=== PATIENT | female | born 1985 | race Caucasian/White ===

== ENCOUNTER 2020-09-14 16:24 | Day surgery (SDC) | payer OTHER, SELFPAY ==
[2020-09-14 16:11] VITALS: BP 129/91; PULSE 84; RESP 20; TEMP 36.9; O2SAT 99; BMI 38.4
--- NOTE | 2020-09-14 16:25 | PM.IMHP ---
H&P: HPI History of Present Illness Date/Time: 09/14/20 16:25 Patient is a 34yo who presented to the gynecology office for evaluation of an ovarian cyst on 09/06/20. Patient reported onset of sharp right lower quadrant pain approx. 4 days earlier. She was evaluated in the emergency department due to concern for possible appendicitis. During workup in emergency department, pelvic ultrasound was performed and showed an 8.6 x 6.9 x 6.0 cm complex cystic mass within right ovary or adnexal region. Left ovary appeared within limits. Patient reported feeling reasonably well and was not experiencing significant pain last week. Decision was made to start continuous hormonal regulation. Plan was initially to repeat pelvic US in a few weeks. Patient, however, reported worsening of pain a few days ago. Decision was made to proceed with surgical management and surgery was scheduled for next week. Patient reports progressive worsening of pain every day since then and reported severe pain today. She also reported new onset of nausea earlier today, however, denied vomiting. Pain seems to radiate between abdomen and pelvis on the right side and is better when lying down, however, severe with standing and walking to the point where patient has to bend over to receive any relief. Due to the severe abdominal and pelvic pain and heightened concern for ovarian torsion, decision was made to proceed with surgery today. Chief Complaint: right adnexal mass Review of Systems Review of Systems: All systems reviewed & are unremarkable except as noted in HPI and below Constitutional: Constitutional: Reports as per HPI and Reports no additional constitutional complaints Eyes: Eyes: Reports as per HPI and Reports no additional eye complaints ENT: Reports system reviewed and no additional complaints, except as documented Cardiovascular: Cardiovascular: Reports as per HPI and Reports no additional cardiovascular complaints Respiratory: Respiratory: Reports as per HPI and Reports no additional respiratory complaints Gastrointestinal: Gastrointestinal: Reports as per HPI, Reports no additional gastrointestinal complaints, Reports abdominal pain, Reports nausea and Denies vomiting Genitourinary: Genitourinary: Reports no additional female genitourinary complaints, Reports as per HPI and Reports pelvic pain Musculoskeletal: Musculoskeletal: Reports no additional musculoskeletal complaints and Reports as per HPI Integumentary/Breasts: Skin/Breast: Reports system reviewed and no additional complaints, except as docu and Reports as per HPI Neurologic: Reports system reviewed and no additional complaints, except as documented and Reports as per HPI Psychiatric: Psychiatric: Reports no additional psychiatric complaints and Reports as per HPI Endocrine: Endocrine: Reports no additional endocrine complaints and Reports as per HPI Hematologic/Lymphatic: Hematologic/Lymphatic: Reports no additional hematologic/lymphatic complaints and Reports as per HPI Allergic/Immunologic: Allergic/Immunologic: Reports no additional allergic/immunologic complaints and Reports as per HPI PMFSH Past Medical History Medical History Hyperthyroidism Ovarian cyst Surgical History Surgical History Previous section x 2 [place] teeth removed Family History Family History Grandparent Diabetes mellitus Other Breast cancer Social History Social History Smoking status: Never smoker Second hand tobacco smoke exposure: No Alcohol intake: current Drinks per week: 4 Substance use: never Substance use type: does not use Spiritual care concerns: No Meds Home Medications and Allergies Home Medications Medication Instructions Recorded Confirmed Type ser
[2020-09-14] MEDS: ACETAMINOPHEN 500 MG TABLET 1000 MG PO (16:48)
[2020-09-14] MEDS: KETOROLAC 15 MG/ML VIAL (*BKC) IV PUSH (16:48)
--- NOTE | 2020-09-14 17:17 | WPDHPUPDATE1 ---
History and Physical Update Update Date/Time: 09/14/20 17:17 History and Physical has been reviewed, including an updated exam of the patient. There are NO changes in the patient's condition. Risks, benefits, and alternatives have been discussed and questions answered. Patient agrees to proceed with procedure.
[2020-09-14] MEDS: HEMOSTATIC MATRIX (SURGIFLO with THROMBIN) KIT 1 KIT XX (19:49)
[2020-09-14 20:30] VITALS: BP 138/92; PULSE 123; RESP 18; TEMP 36.3; O2SAT 97
[2020-09-14] MEDS: LACTATED RINGERS 1,000 ML 30 ML IV CONT (20:30)
--- NOTE | 2020-09-14 20:35 | PM.PROC ---
Procedure Note - Detailed Date of procedure: 09/14/20 Pre-op diagnosis: right ovarian mass, pelvic pain Post-op diagnosis: same Procedure performed: Laparoscopic right salpingo-oophorectomy, extensive lysis of adhesions Description of procedure: The patient was taken to the operating room where she self transferred to the operating room table. She was placed in dorsal supine position. General anesthesia was administered and found be adequate. The patient was repositioned in dorsal lithotomy position with use of Charles stirrups. She was prepped and draped in the usual sterile fashion. A Whitley catheter was placed using aseptic technique. A bivalve speculum was inserted into the vagina. The cervix was well visualized and the anterior lip of the cervix was grasped with a single-tooth tenaculum. The cervix was serially dilated to accommodate a HUMI uterine manipulator. The uterine manipulator was inserted and insufflated for use during the laparoscopic portion of the case. The tenaculum and speculum were removed. Director Of Catering's gloves were changed and attention was turned to the patient's abdomen. A small amount of Exparel was injected in the infraumbilical region. An infraumbilical skin incision was made with scalpel. With the abdomen tented up, a Veress needle was inserted into the abdominal cavity. Intra-abdominal placement was confirmed with saline. Carbon dioxide tubing was connected to the Veress needle and insufflation was begun. An adequate pneumoperitoneum was achieved, the Veress needle was removed and a 5 mm Optiview trocar was inserted under direct visualization. The patient was placed in Trendelenburg position for enhanced visualization. A pelvic survey was attempted to be performed, however, limited due to the presence of extensive adhesions. Decision was made to proceed with the placement of two accessory trocars, one in the left lower quadrant and one in the right lower quadrant. A 5 mm trocar was introduced under direct visualization in the right lower quadrant and a 10 mm trocar was inserted in the left lower quadrant under direct visualization. A general pelvic survey was performed. Extensive omental adhesions to the anterior abdominal wall were noted. The uterus was densely adherent to the anterior abdominal wall. The visualized portions of the left ovary and fallopian tube appeared normal, however, were noted to be adherent to the left pelvic side wall and bowel. The right ovary was visualized and noted to be enlarged. Most of the ovary was encompassed by a large cyst and there was little to no remaining normal ovarian tissue. Several ovarian cysts with nodular-like features on the ovarian surface were also noted. The right ovary was noted to be encased and very densely adherent to the right pelvic side wall. The right fallopian tube was adhered to the surface of the ovary, however, appeared grossly normal. Even with patient rotation, Trendelenburg positioning, and careful displacement of the ovary, due to the size of the ovary and the numerous adhesions along the right side wall, the ureter was unable to be visualized. With the use of a blunt probe and Endoshears, lysis of adhesions was performed along the right pelvic side wall very carefully using a combination of both blunt as well as sharp dissection. After extensive lysis of adhesions, the right IP ligament was better visualized as was the right utero-ovarian ligament. The IP ligament was transected with the LigaSure device. The fallopian tube was then transected near the uterine cornua with a LigaSure device and the utero-ovarian ligament was also transected in a few bites completely freeing the ovary and fallopian tube. A small vessel near the right side wall was bleeding. This vessel was made hemostatic with the LigaSure. A 10 mm Endo-Catch bag was introduced into the abdominal cavity and opened, however, was deemed too small for ovary removal. The 10mm Endo-Catch bag was removed as well as the 10mm tr
[2020-09-14 20:45] VITALS: BP 137/73; PULSE 109; RESP 18; O2SAT 100
[2020-09-14] MEDS: fentaNYL CITRATE INJ (*CRX) 100 MCG/2 ML VIAL 25 MCG IV PUSH ×4 (20:53→21:10)
[2020-09-14 21:00] VITALS: BP 119/81; PULSE 94; RESP 18; O2SAT 93
[2020-09-14 21:15] VITALS: BP 124/88; PULSE 97; RESP 14; O2SAT 94
[2020-09-14 22:00] VITALS: BP 126/84; PULSE 108; RESP 16; TEMP 36.1; O2SAT 95
[2020-09-14] MEDS: KETOROLAC 30 MG/ML VIAL (*BKC) IV PUSH (23:35)
[2020-09-15 01:15] VITALS: BP 129/80; PULSE 110; RESP 16; TEMP 36.9; O2SAT 95
[2020-09-15 04:50] VITALS: BP 115/76; PULSE 99; RESP 15; TEMP 36.6; O2SAT 97
[2020-09-15] MEDS: KETOROLAC 30 MG/ML VIAL (*BKC) IV PUSH (05:07)
[2020-09-15 05:15] LABS: Basophils Percent Auto 0.1 % (0.2-1.2); Hematocrit 38.1 % (37.0-47.0); Hemoglobin 12.9 g/dL (12.0-15.0); Immature Granulocyte Absolute 0.09 K/mm3 (0.00-0.031); Immature Granulocyte Percent A 0.7 % (0-0.5); Lymphocytes Absolute Auto 1.68 K/mm3 (0.9-3.2); Lymphocytes Percent Auto 12.6 % (18.3-44.2); Mean Corpuscular HGB Conc 33.9 g/dl (32-36); Mean Corpuscular Hemoglobin 31.8 pg (26-34); Mean Corpuscular Volume 93.8 fl (80-100); Mean Platelet Volume 8.6 fl (7.4-10.4); Monocytes Absolute Auto 0.6 K/mm3 (0.1-0.6); Monocytes Percent Auto 4.4 % (2.6-8.5); Neutrophils Percent Auto 82.2 % (45.5-73.1); Platelet Count Result 257 k/mm3 (150-375); Red Blood Count 4.06 M/mm3 (4.2-5.4); Red Cell Distribution Width 11.5 % (11.5-14.5); White Blood Count 13.3 K/mm3 (4.5-10.0)
[2020-09-15 07:20] VITALS: BP 123/77; PULSE 99; RESP 16; TEMP 36.7; O2SAT 98
--- NOTE | 2020-09-15 07:51 | P.PNAN_ITS ---
Anes - Prog Note Post-Op Date/Time: 09/15/20 07:51 Cardiovascular status: normal Respiratory status: normal Airway patency: baseline Mental status: baseline Post-Op hydration status: normal Vital Signs: Last Vital Signs Temp 97.9 F 09/15/20 04:50 Pulse 99 09/15/20 04:50 Resp 15 09/15/20 04:50 BP 115/76 09/15/20 04:50 Pulse Ox 97 09/15/20 04:50 Pain Score (VAS): 0 I/O: Intake & Output 09/14/20 09/14/20 09/15/20 15:59 23:59 07:59 Intake Total 300 900 Output Total 675 975 Balance -375 -75 Laboratory Tests 09/15/20 05:01 09/15/20 05:01 WBC 13.3 H RBC 4.06 L Hgb 12.9 Hct 38.1 MCV 93.8 MCH 31.8 MCHC 33.9 RDW 11.5 Plt Count 257 MPV 8.6 Immature Gran % (Auto) 0.7 H Neut % (Auto) 82.2 H Lymph % (Auto) 12.6 L [place] % (Auto) 4.4 Eos % (Auto) 0.0 Baso % (Auto) 0.1 L Lymph # (Auto) 1.68 [place] # (Auto) 0.6 Eos # (Auto) 0.0 Baso # (Auto) 0.0 Abs Immat Gran (auto) 0.09 H Absolute Neuts (auto) 11.0 H Absolute Nucleated RBC 0.0 Nucleated RBC % 0.0 Patient Feedback: Patient satisfied with anesthetic care.
[2020-09-15] MEDS: HYDROcodone/acetaminophen (*CRX) 5-325 MG TABLET 1 TAB PO (08:43)
--- NOTE | 2020-09-15 08:47 | PM.GYNPNOP ---
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, unilateral Status: Acute Assessment and Plan: POD#1 doing well continue routine postoperative care switch to PO pain medication dc ferrer anticipate dc home this afternoon Postoperative Procedures: Procedures Operation Date: 09/14/20 18:00 Actual Procedure Side Surgeon p Laparoscopic Right Ovarian Cystectomy, Right Salpingo-Oophorectomy, Extensive Lysis of Adhesions Right Annabelle Kee MD Time Spent With Patient Time: Total time spent is greater than 50% in coordination of care (as documented) at patient's floor/unit and/or counseling patient: Time with patient: less than 15 minutes BARGE WORKER- PN:Subj Post-Op Subjective Date/time seen: 09/15/20 08:47 Patient doing well this morning. States the pain is well controlled with IV pain medication. Currently reports pain approximately 3/10. Denies any headache, chest pain, shortness of breath, nausea, or vomiting. Has tolerated small amount of PO. Ferrer catheter still in place. No flatus yet. Has not yet ambulated. Exam Const: General: cooperative, healthy appearing, comfortable and no acute distress GI: Inspection: non-distended and obesity GI Palp: Yes Soft to palpation Other: appropriately tender, incision sites c/d/i Extrem: Right lower extremity: no edema Left lower extremity: no edema Other: no calf tenderness BARGE WORKER - PN: Obj Data Vital Signs Vital Signs: Vital Signs - 24 hr 09/14/20 16:11 09/14/20 20:30 09/14/20 20:45 Temperature 36.9 C 36.3 C L Pulse Rate 84 123 H 109 H Respiratory Rate 20 18 18 Blood Pressure 129/91 H 138/92 H 137/73 Pulse Oximetry 99 97 100 09/14/20 21:00 09/14/20 21:15 09/14/20 22:00 Temperature 36.1 C L Pulse Rate 94 97 108 H Respiratory Rate 18 14 16 Blood Pressure 119/81 124/88 126/84 Pulse Oximetry 93 94 95 09/15/20 01:15 09/15/20 04:50 Temperature 36.9 C 36.6 C Pulse Rate 110 H 99 Respiratory Rate 16 15 Blood Pressure 129/80 115/76 Pulse Oximetry 95 97 Intake/Output Intake/Output: Intake & Output 09/12/20 09/13/20 09/14/20 09/15/20 23:59 23:59 23:59 23:59 Intake Total 300 900 Output Total 675 975 Balance -375 -75 Meds/Results Medications: Active Medications Generic Name Dose Route Start Last Admin Trade Name Freq PRN Reason Stop Dose Admin Hydrocodone Bitart/Acetaminophen 1 tab 09/14/20 21:27 09/15/20 08:43 Hydrocodone/Acetaminophen (*Crx) 5-325 Mg Tablet PO 1 tab Q3H PRN Administration Pain Rated 5 or Less Hydrocodone Bitart/Acetaminophen 1 tab 09/14/20 21:27 Hydrocodone/Acetaminophen (*Crx) 10-325 Mg Tablet PO Q3H PRN Pain Rated 6 or Greater Dextrose/Lactated Ringer's 1,000 mls @ 125 mls/hr 09/14/20 21:27 Dextrose 5%/Lactated Ringers IV CONT .Q8H LINDSEY Ibuprofen 600 mg 09/14/20 21:27 Ibuprofen 600 Mg Tablet PO Q6H PRN Cramping Ketorolac Tromethamine 30 mg 09/14/20 21:27 09/15/20 05:07 Ketorolac 30 Mg/Ml Vial (*Bkc) IV PUSH 09/19/20 21:28 30 mg Q6H PRN Administration Pain Rated 4-6 Morphine Sulfate 4 mg 09/14/20 21:27 Morphine Sulfate (*Crx) 4 Mg/Ml Inj IV PUSH Q4H PRN Severe breakthrough pain Naloxone HCl 0.1 mg 09/14/20 21:27 Naloxone Hcl 0.4 Mg/Ml Vial IV PUSH Q2M PRN Respiratory rate less than 10 Ondansetron HCl 4 mg 09/14/20 21:27 Ondansetron Inj 4 Mg/2 Ml Vial IV PUSH Q6H PRN Nausea And Vomiting Labs CBC & Chem 7: 09/15/20 05:01 Labs: Laboratory Results - last 24 hr 09/15/20 05:01 WBC 13.3 H RBC 4.06 L Hgb 12.9 Hct 38.1 MCV 93.8 MCH 31.8 MCHC 33.9 RDW 11.5 Plt Count 257 MPV 8.6 Immature Gran % (Auto) 0.7 H Neut % (Auto) 82.2 H Lymph % (Auto) 12.6 L [place] % (Auto) 4.4 Eos % (Auto) 0.0 Baso % (Auto) 0.1 L Lymph # (Auto) 1.68 [place] # (Auto) 0.6 Eos # (Auto) 0.0
[2020-09-15 09:30] VITALS: PULSE 99; RESP 16; O2SAT 98
[2020-09-15] MEDS: IBUPROFEN 600 MG TABLET PO (10:48)
[2020-09-15] MEDS: HYDROcodone/acetaminophen (*CRX) 10-325 MG TABLET 1 TAB PO (11:36)
[2020-09-15 12:30] VITALS: BP 142/82; PULSE 99; RESP 16; TEMP 37.3; O2SAT 96
== END 2020-09-15 13:34 | disposition home or self-care (01) ==
LOC: ANHSURGERY 16:43 → ANHOB2 09-15 11:01
PROVIDERS: PCP Internal Medicine; Visit Provider Student in an Organized Health Care Education/Training Program
PROC: (CPT 49320; principal; 2020-09-14 18:00)
DX: N83.8 Other noninflammatory disorders of ovary, fallopian tube and broad ligament (principal); N73.6 Female pelvic peritoneal adhesions (postinfective); N83.201 Unspecified ovarian cyst, right side; N83.01 Follicular cyst of right ovary; E03.9 Hypothyroidism, unspecified; R10.2 Pelvic and perineal pain
CPT/HCPCS: 58661; 36415; 85025; 88305; 99199; A9270; C9290; J0330; J1100; J1170; J1885; J2250; J2405; J2704; J2710; J3010; J7030; J7120

== ENCOUNTER 2024-11-23 15:41 | Outpatient (CLI) | payer OTHER, SELFPAY ==
--- NOTE | ~2024-11-23 | US_ITS ---
US thyroid INDICATION: Hyperthyroidism TECHNIQUE: Real-time sonographic images of the thyroid gland were obtained. COMPARISON: No prior studies for comparison. FINDINGS: The right thyroid lobe measures 5.1 x 3.1 x 3 cm. The left thyroid lobe measures 4.2 x 1.1 x 1.6 cm. Thyroid is heterogeneous. There is a complex mass in the right thyroid gland which is viral d, very hypoechoic, wider than tall, smoothly marginated with multiple echogenic foci, TR 5, measurin g 3.4 x 2.3 x 2.1 cm. There are multiple small masses in the left thyroid gland, largest measuring 8 x 6 x 7 mm appears cystic. No suspicious masses in the left thyroid gland to suggest malignancy. Norm al vascular flow is present. IMPRESSION: 1. Suspicious right thyroid mass measuring 3.4 cm, TR 5. Ultrasound-guided right thyroid biopsy mike mmended. Reviewed, dictated and finalized at location B. IMPRESSION: 1. Suspicious right thyroid mass measuring 3.4 cm, TR 5. Ultrasound-guided rig ht thyroid biopsy recommended.
== END 2024-11-23 15:42 | disposition home or self-care (01) ==
LOC: MICIMG 15:43
PROVIDERS: PCP Nurse Practitioner Family
DX: E04.1 Nontoxic single thyroid nodule (principal)
CPT/HCPCS: 76536